=== PATIENT | male | born 1990 | race Caucasian/White ===

== ENCOUNTER 2020-05-18 05:17 | Emergency (ER) | payer OTHER ==
[~2020-05-18] VITALS: Ht 185.4 cm; Wt 118.1 kg
[2020-05-18 05:21] VITALS: BP 126/81
--- NOTE | 2020-05-18 05:41 | NUR ---
PT IN GOWN IN [facility]. PT MEDICAL HISTORY AND BS ASSESSMENT PERFORMED. DR VILLEDA AT BS TO DISCUSS POC. CALL LIGHT IS WITHIN REACH.
[2020-05-18] MEDS ORDERED: KETOROLAC 60 MG/2 ML ONE (05:59)
--- NOTE | 2020-05-18 06:11 | NUR ---
PT MEDICATED PER AUG. PT TO CT VIA [facility] AT THIS TIME.
[2020-05-18] MEDS ORDERED: KETOROLAC 60 MG/2 ML IM ONE (07:00)
[2020-05-18 08:12] LABS: MICROSCOPIC NOT IND
--- NOTE | 2020-05-18 08:42 | NUR ---
PT D/C WITH D/C SUMMARY. ALL QUESTIONS ANSWERED. PT AMBULATES TO REGISTRATION DESK WITH STEADY GAIT FOR D/C HOME. PT DENIES ANY OTHER NEEDS PERTAINING TO THIS VISIT.
== END 2020-05-18 08:45 ==
LOC: ED 08:39
DX: I86.1 Scrotal varices (principal)
CPT/HCPCS: 76870; 81003; 87491; 87591; 99284